=== PATIENT | male | born 1985 | race Asian ===

== ENCOUNTER 2020-12-23 03:47 | Emergency (ER) | payer SELFPAY ==
[~2020-12-23] VITALS: Ht 175.3 cm; Wt 85.0 kg
[2020-12-23 04:25] LABS: MICROSCOPIC NOT IND
[2020-12-23 04:52] LABS: BASOPHILS % (AUTO) 1 % (0-1); EOSINOPHILS % (AUTO) 0 % (1-7); LYMPHOCYTES % (AUTO) 22 % (22-44); MEAN CORPUSCULAR HEMOGLOBIN 32.5 pg (27.5-34.5); MEAN CORPUSCULAR HGB CONC 34.8 g/dL (33.2-36.2); MEAN PLATELET VOLUME 7.1 fL (7.4-10.4); MONOCYTES % (AUTO) 6 % (2-9); NEUTROPHILS % (AUTO) 71 % (42-75); PLATELET COUNT 276 x10^3/uL (130-400); RED BLOOD COUNT 4.58 x10^6/uL (4.38-5.82)
[2020-12-23 05:03] LABS: ANION GAP 5 mmol/L (5-15); CALCIUM 9.3 mg/dL (8.5-10.1); CHLORIDE 105 mmol/L (98-107)
[2020-12-23 05:06] LABS: ALANINE AMINOTRANSFERASE 41 U/L (12-78); ALKALINE PHOSPHATASE 66 U/L (45-117); BILIRUBIN,TOTAL 0.5 mg/dL (0.2-1.0); CREATININE 0.83 mg/dL (0.7-1.3); TOTAL PROTEIN 8.2 g/dL (6.4-8.2)
--- NOTE | 2020-12-23 06:47 | NUR ---
DR MCDONOUGH SAW PT IN TRIAGE, DISCHARGED FROM TRIAGE
[2020-12-23 06:49] VITALS: BP 130/80
== END 2020-12-23 06:53 | disposition home or self-care (01) ==
LOC: ED 06:30
DX: K80.62 Calculus of gallbladder and bile duct with acute cholecystitis without obstruction (principal)
CPT/HCPCS: 36415; 76700; 80053; 81003; 83690; 85025; 99284